=== PATIENT | female | born 1965 | race African-American/Black ===

== ENCOUNTER 2020-08-29 06:59 | Day surgery (SDC) | payer OTHER ==
[2020-08-26 14:17] VITALS: BMI 26.6
[2020-08-29] MEDS ORDERED: Lidocaine 1% MPF 2 ML VIAL ONE (07:20)
[2020-08-29] MEDS ORDERED: PROPOFOL 60 ML ONE (08:26)
[2020-08-29] MEDS ORDERED: Glycopyrrolate 0.2 MG/ML 5 ML SYRINGE ONE (08:41)
== END 2020-08-29 10:50 | disposition home or self-care (01) ==
LOC: CSHSDC 06:59
PROVIDERS: ATTEND Internal Medicine Gastroenterology
PROC: 0DJD8ZZ Inspection of Lower Intestinal Tract, Via Natural or Artificial Opening Endoscopic (ICD-10-PCS; principal; 2020-08-29)
DX: Z12.11 Encounter for screening for malignant neoplasm of colon (principal); K57.30 Diverticulosis of large intestine without perforation or abscess without bleeding; K64.9 Unspecified hemorrhoids
CPT/HCPCS: J2704

== ENCOUNTER 2024-07-13 10:44 | Outpatient (CLI) | payer OTHER | END 2024-07-13 10:45 | disposition home or self-care (01) | LOC: CSHMAMMO 10:44 | PROVIDERS: ATTEND Student in an Organized Health Care Education/Training Program | DX: Z12.31 Encounter for screening mammogram for malignant neoplasm of breast (principal) | CPT/HCPCS: 77063; 77067 ==